=== PATIENT | female | born 1970 | race Caucasian/White ===

== ENCOUNTER 2017-04-06 14:04 | Inpatient (IN) | payer BC ==
[2017-04-06] MEDS ORDERED: NACL 0.9% 3 ML SYG IV ×2 (15:30→18:30)
[2017-04-06] MEDS: morphine 2 MG INJ IV (15:34)
[2017-04-06] MEDS ORDERED: ACETAMINOPHEN 325 MG TAB PO (18:30)
[2017-04-06] MEDS ORDERED: ONDANSETRON 4 MG INJ IV (18:30)
[2017-04-06] MEDS: ENOXAPARIN 40 MG/0.4 ML SYG SC (18:43)
[2017-04-06] MEDS: ASPIRIN 81 MG TAB PO (18:43)
[2017-04-06] MEDS: SOD CHLORIDE 0.45% 1,000 ML IV (18:45)
[2017-04-06] MEDS ORDERED: ASPIRIN 81 MG TAB PO (20:00)
[2017-04-06 20:01] LABS: CREATINE KINASE 39 IU/L (23-200)
[2017-04-06 20:03] LABS: ANION GAP 12 (8-16); BLOOD UREA NITROGEN 15 mg/dl (7-20); CALCIUM 8.3 mg/dl (8.4-10.2); CARBON DIOXIDE 19 mmol/L (21-31); CHLORIDE 112 mmol/L (97-110); CREATININE 0.82 mg/dl (0.44-1.00); GLUCOSE 153 mg/dl (70-220); POTASSIUM 3.6 mmol/L (3.5-5.1); SODIUM 139 mmol/L (135-144)
[2017-04-06 20:15] LABS: CK INDEX 4.9; CK-MB 1.92 ng/ml (0.0-2.4); TROPONIN-I < 0.012 ng/ml (0.00-0.12)
[2017-04-06] MEDS ORDERED: ENOXAPARIN 40 MG/0.4 ML SYG SC (21:00)
[2017-04-06] MEDS: FAMOTIDINE 20 MG INJ IV (21:08)
[2017-04-07 01:18] LABS: CREATINE KINASE 33 IU/L (23-200)
[2017-04-07 01:28] LABS: CK INDEX 5.4; CK-MB 1.77 ng/ml (0.0-2.4)
[2017-04-07 01:32] LABS: TROPONIN-I < 0.012 ng/ml (0.00-0.12)
[2017-04-07] MEDS: IOHEXOL 300MG/ML 150 ML BTL (04:03)
[2017-04-07] MEDS: SOD CHLORIDE 0.9% 100 ML ×2 (04:03→16:21)
[2017-04-07] MEDS: SOD CHLORIDE 0.45% 1,000 ML IV ×2 (08:41→20:47)
[2017-04-07] MEDS: ASPIRIN 81 MG TAB PO (09:21)
[2017-04-07] MEDS: FAMOTIDINE 20 MG INJ IV ×2 (09:21→20:35)
[2017-04-07 14:16] LABS: ADD MAN DIFF? NO
[2017-04-07 14:21] LABS: BASOPHIL # 0.1 10^3/ul (0.0-0.1); BASOPHILS % 0.8 % (0.0-2.0); EOSINOPHILS # 0.2 10^3/ul (0.0-0.5); EOSINOPHILS % 1.8 % (0.0-7.0); HEMATOCRIT 44.8 % (37.0-47.0); HEMOGLOBIN 14.9 g/dl (12.0-16.0); LYMPHOCYTES # 3.2 10^3/ul (0.8-2.9); MEAN CORPUSCULAR HGB CONC 33.3 g/dl (32.0-37.0); MEAN CORPUSCULAR VOLUME 90.1 fl (82.0-101.0); MEAN PLATELET VOLUME 10.4 fl (7.4-10.4); MONOCYTE # 0.6 10^3/ul (0.3-0.9); MONOCYTES % 6.4 % (0.0-11.0); NEUTROPHIL # 5.7 10^3/ul (1.6-7.5); NEUTROPHILS % 57.5 % (39.0-77.0); PLATELET COUNT 347 10^3/UL (140-415); RED BLOOD COUNT 4.97 10^6/ul (4.20-5.40); RED CELL DISTRIBUTION WIDTH 13.9 % (11.5-14.5)
[2017-04-07 14:21] LABS: WHITE BLOOD COUNT 9.8 10^3/ul (4.8-10.8)
[2017-04-07 14:30] LABS: HEMOGLOBIN A1C 6.1 % (0-5.9)
[2017-04-07 14:38] LABS: ANION GAP 11 (8-16); BLOOD UREA NITROGEN 15 mg/dl (7-20); CALCIUM 8.4 mg/dl (8.4-10.2); CARBON DIOXIDE 20 mmol/L (21-31); CHLORIDE 110 mmol/L (97-110); CREATININE 0.75 mg/dl (0.44-1.00); GLUCOSE 136 mg/dl (70-220); POTASSIUM 4.3 mmol/L (3.5-5.1); SODIUM 137 mmol/L (135-144)
[2017-04-07 14:41] LABS: CHOL/HDL RATIO 4.7 RATIO; HDL CHOLESTEROL 32 mg/dl (34-88); LDL CHOLESTEROL,CALCULATED 66 mg/dl; TRIGLYCERIDES 264 mg/dl (0-149)
[2017-04-07 14:41] LABS: CHOLESTEROL 151 mg/dl (100-200)
[2017-04-07 14:42] LABS: MAGNESIUM 1.7 mg/dl (1.7-2.5)
[2017-04-07 14:42] LABS: PHOSPHORUS 4.6 mg/dl (2.5-4.9)
[2017-04-07 14:57] LABS: FREE THYROXINE INDEX (Calc) 2.18 ug/ml (0.65-3.89); T3 UPTAKE 41.2 % (23.5-40.5); T4 (THYROXINE) 5.3 ug/dl (5.5-11.0)
[2017-04-07] MEDS: IOHEXOL 100 ML (17:20)
[2017-04-07] MEDS: IOHEXOL 350MG/ML 50 ML BTL (17:20)
[2017-04-07] MEDS: ENOXAPARIN 40 MG/0.4 ML SYG SC (18:10)
[2017-04-07] MEDS: CYCLOBENZAPRINE 10 MG TAB PO (20:35)
[2017-04-08 07:45] LABS: ADD MAN DIFF? NO
[2017-04-08 07:51] LABS: WHITE BLOOD COUNT 8.6 10^3/ul (4.8-10.8)
[2017-04-08 07:51] LABS: BASOPHIL # 0.1 10^3/ul (0.0-0.1); BASOPHILS % 0.7 % (0.0-2.0); EOSINOPHILS # 0.1 10^3/ul (0.0-0.5); EOSINOPHILS % 1.5 % (0.0-7.0); HEMATOCRIT 43.9 % (37.0-47.0); HEMOGLOBIN 14.9 g/dl (12.0-16.0); LYMPHOCYTES # 2.8 10^3/ul (0.8-2.9); LYMPHOCYTES % 32.1 % (15.0-51.0); MEAN CORPUSCULAR HGB CONC 33.9 g/dl (32.0-37.0); MEAN CORPUSCULAR VOLUME 88.5 fl (82.0-101.0); MEAN PLATELET VOLUME 10.5 fl (7.4-10.4); MONOCYTE # 0.6 10^3/ul (0.3-0.9); MONOCYTES % 7.5 % (0.0-11.0); NEUTROPHILS % 57.8 % (39.0-77.0); PLATELET COUNT 299 10^3/UL (140-415); RED BLOOD COUNT 4.96 10^6/ul (4.20-5.40); RED CELL DISTRIBUTION WIDTH 13.9 % (11.5-14.5)
[2017-04-08 08:16] LABS: ANION GAP 11 (8-16); BLOOD UREA NITROGEN 13 mg/dl (7-20); CALCIUM 8.7 mg/dl (8.4-10.2); CARBON DIOXIDE 22 mmol/L (21-31); CHLORIDE 108 mmol/L (97-110); CREATININE 0.79 mg/dl (0.44-1.00); GLUCOSE 111 mg/dl (70-220); POTASSIUM 4.2 mmol/L (3.5-5.1); SODIUM 137 mmol/L (135-144)
[2017-04-08] MEDS: ASPIRIN 81 MG TAB PO (09:15)
[2017-04-08] MEDS: CYCLOBENZAPRINE 10 MG TAB PO ×3 (09:15→20:42)
[2017-04-08] MEDS: FAMOTIDINE 20 MG INJ IV ×2 (09:16→20:42)
[2017-04-08] MEDS: SOD CHLORIDE 0.45% 1,000 ML IV (13:08)
[2017-04-08] MEDS: LISINOPRIL 5 MG TAB PO (15:06)
[2017-04-08] MEDS: ENOXAPARIN 40 MG/0.4 ML SYG SC (18:04)
[2017-04-08] MEDS: SILDENAFIL 20 MG TAB PO (20:44)
[2017-04-08] MEDS: morphine 2 MG INJ IV (20:53)
[2017-04-09] MEDS: LEVOTHYROXINE 25 MCG TAB PO (06:24)
[2017-04-09] MEDS: morphine 2 MG INJ IV (09:14)
[2017-04-09] MEDS: GEMFIBROZIL 600 MG TAB PO (09:15)
[2017-04-09] MEDS: SILDENAFIL 20 MG TAB PO ×3 (09:15→21:23)
[2017-04-09] MEDS: ASPIRIN 81 MG TAB PO (09:16)
[2017-04-09] MEDS: CYCLOBENZAPRINE 10 MG TAB PO ×3 (09:16→21:23)
[2017-04-09] MEDS: AMLODIPINE 2.5 MG TAB PO (09:16)
[2017-04-09] MEDS: LISINOPRIL 5 MG TAB PO (09:16)
[2017-04-09] MEDS: FUROSEMIDE 20 MG INJ IV (09:17)
[2017-04-09] MEDS: FAMOTIDINE 20 MG INJ IV ×2 (09:23→21:23)
[2017-04-09] MEDS: SOD CHLORIDE 0.45% 1,000 ML IV (13:17)
[2017-04-09] MEDS: ENOXAPARIN 40 MG/0.4 ML SYG SC (18:36)
[2017-04-09] MEDS: ACETAMINOPHEN 325 MG TAB PO (21:23)
[2017-04-10] MEDS: LEVOTHYROXINE 25 MCG TAB PO (06:33)
[2017-04-10] MEDS: AMLODIPINE 2.5 MG TAB PO (09:00)
[2017-04-10] MEDS: LISINOPRIL 5 MG TAB PO (09:00)
[2017-04-10] MEDS: SILDENAFIL 20 MG TAB PO ×2 (09:00→13:00)
[2017-04-10] MEDS: FUROSEMIDE 20 MG INJ IV ×2 (09:00→09:21)
[2017-04-10] MEDS: CYCLOBENZAPRINE 10 MG TAB PO ×3 (09:21→20:47)
[2017-04-10] MEDS: GEMFIBROZIL 600 MG TAB PO (09:21)
[2017-04-10] MEDS: ASPIRIN 81 MG TAB PO (09:21)
[2017-04-10] MEDS: FAMOTIDINE 20 MG INJ IV ×2 (09:21→20:47)
[2017-04-10] MEDS: ACETAMINOPHEN 325 MG TAB PO (12:21)
[2017-04-10] MEDS: SOD CHLORIDE 0.9% 500 ML IV (13:00)
[2017-04-10] MEDS: SOD CHLORIDE 0.45% 1,000 ML IV (15:00)
[2017-04-10 16:10] LABS: TROPONIN-I 0.039 ng/ml (0.00-0.12)
[2017-04-10] MEDS: SOD CHLORIDE 0.9% 250 ML IV (16:30)
[2017-04-10] MEDS: ALBUMIN HUMAN 25% 50 ML IV (16:30)
[2017-04-10] MEDS: KETOROLAC 30 MG INJ IV (17:00)
[2017-04-10] MEDS: CEFAZOLIN 1 GM/50 ML (PMX) 50 ML IVPB ×2 (17:00→22:30)
[2017-04-10] MEDS: ENOXAPARIN 40 MG/0.4 ML SYG SC (18:00)
[2017-04-11] MEDS: morphine 2 MG INJ IV ×4 (00:10→21:45)
[2017-04-11] MEDS: CEFAZOLIN 1 GM/50 ML (PMX) 50 ML IVPB ×3 (05:28→21:09)
[2017-04-11] MEDS: LEVOTHYROXINE 25 MCG TAB PO (05:29)
[2017-04-11 07:26] LABS: ADD MAN DIFF? NO
[2017-04-11 07:30] LABS: BASOPHILS % 0.3 % (0.0-2.0); EOSINOPHILS % 0.5 % (0.0-7.0); HEMATOCRIT 45.1 % (37.0-47.0); LYMPHOCYTES # 0.6 10^3/ul (0.8-2.9); LYMPHOCYTES % 8.1 % (15.0-51.0); MEAN CORPUSCULAR HEMOGLOBIN 29.8 pg (29.0-33.0); MEAN CORPUSCULAR HGB CONC 33.3 g/dl (32.0-37.0); MEAN CORPUSCULAR VOLUME 89.7 fl (82.0-101.0); MEAN PLATELET VOLUME 10.8 fl (7.4-10.4); MONOCYTE # 0.4 10^3/ul (0.3-0.9); MONOCYTES % 4.9 % (0.0-11.0); NEUTROPHIL # 6.7 10^3/ul (1.6-7.5); NEUTROPHILS % 85.7 % (39.0-77.0); PLATELET COUNT 181 10^3/UL (140-415); RED BLOOD COUNT 5.03 10^6/ul (4.20-5.40); RED CELL DISTRIBUTION WIDTH 14.2 % (11.5-14.5)
[2017-04-11 07:30] LABS: WHITE BLOOD COUNT 7.8 10^3/ul (4.8-10.8)
[2017-04-11 07:51] LABS: MAGNESIUM 1.7 mg/dl (1.7-2.5)
[2017-04-11 07:51] LABS: PHOSPHORUS 4.2 mg/dl (2.5-4.9)
[2017-04-11 07:59] LABS: ALANINE AMINOTRANSFERASE 53 IU/L (13-69); ALBUMIN 3.3 g/dl (3.3-4.9); ALKALINE PHOSPHATASE 111 IU/L (42-121); ANION GAP 14 (8-16); ASPARTATE AMINO TRANSFERASE 44 IU/L (15-46); BILIRUBIN,INDIRECT 1.4 mg/dl (0-1.1); BILIRUBIN,TOTAL 1.4 mg/dl (0.2-1.3); BLOOD UREA NITROGEN 32 mg/dl (7-20); CALCIUM 8.5 mg/dl (8.4-10.2); CARBON DIOXIDE 23 mmol/L (21-31); CHLORIDE 103 mmol/L (97-110); CREATININE 1.48 mg/dl (0.44-1.00); GLUCOSE 128 mg/dl (70-220); POTASSIUM 4.5 mmol/L (3.5-5.1); SODIUM 135 mmol/L (135-144); TOTAL PROTEIN 6.6 g/dl (6.1-8.1)
[2017-04-11] MEDS: FAMOTIDINE 20 MG INJ IV ×2 (08:27→21:09)
[2017-04-11] MEDS: GEMFIBROZIL 600 MG TAB PO (08:27)
[2017-04-11] MEDS: CYCLOBENZAPRINE 10 MG TAB PO ×3 (08:27→21:09)
[2017-04-11] MEDS: ASPIRIN 81 MG TAB PO (08:27)
[2017-04-11 10:00] LABS: HIV 1&2 ANTIBODY NEGATIVE (NEGATIVE)
[2017-04-11] MEDS: SOD CHLORIDE 0.45% 1,000 ML IV (13:17)
[2017-04-11 16:46] LABS: RHEUMATOID FACTOR NEGATIVE (NEGATIVE)
[2017-04-11] MEDS: SOD CHLORIDE 0.9% 500 ML IV (17:31)
[2017-04-11] MEDS: ENOXAPARIN 40 MG/0.4 ML SYG SC (18:06)
[2017-04-12] MEDS: LEVOTHYROXINE 25 MCG TAB PO (05:35)
[2017-04-12] MEDS: CEFAZOLIN 1 GM/50 ML (PMX) 50 ML IVPB ×2 (05:36→13:41)
[2017-04-12 08:47] LABS: ANION GAP 13 (8-16); BLOOD UREA NITROGEN 20 mg/dl (7-20); CALCIUM 8.7 mg/dl (8.4-10.2); CARBON DIOXIDE 19 mmol/L (21-31); CHLORIDE 107 mmol/L (97-110); CREATININE 0.83 mg/dl (0.44-1.00); GLUCOSE 153 mg/dl (70-220); POTASSIUM 4.2 mmol/L (3.5-5.1); SODIUM 135 mmol/L (135-144)
[2017-04-12] MEDS: CYCLOBENZAPRINE 10 MG TAB PO ×3 (08:59→21:39)
[2017-04-12] MEDS: ASPIRIN 81 MG TAB PO (08:59)
[2017-04-12] MEDS: GEMFIBROZIL 600 MG TAB PO (08:59)
[2017-04-12] MEDS: FAMOTIDINE 20 MG INJ IV ×2 (09:00→21:39)
[2017-04-12] MEDS ORDERED: DIAZEPAM 5 MG TAB PO (10:30)
[2017-04-12] MEDS ORDERED: DIPHENHYDRAMINE 50 MG CAP PO (10:30)
[2017-04-12] MEDS ORDERED: MIDAZOLAM 1 MG/ML 2 ML INJ (12:34)
[2017-04-12] MEDS ORDERED: FENTAnyl 50 MCG/ML VIAL (12:34)
[2017-04-12] MEDS ORDERED: LIDOCAINE 1% (MDV) 20 ML INJ (12:34)
[2017-04-12] MEDS ORDERED: IODIXANOL LOCM 100 ML BTL (12:34)
[2017-04-12 13:21] LABS: ANA SCREEN NEGATIVE (NEGATIVE); MYELOPEROXIDASE ANTIBODY <1.0 AI; PROTEINASE-3 ANTIBODY <1.0 AI
[2017-04-12 14:51] LABS: ANCA SCREEN NEGATIVE (NEGATIVE)
[2017-04-12 14:56] LABS: URIC ACID 4.6 mg/dl (3.1-7.9)
[2017-04-12 15:19] LABS: RHEUMATOID FACTOR NEGATIVE (NEGATIVE)
[2017-04-12] MEDS: morphine 2 MG INJ IV ×2 (18:00→21:57)
[2017-04-12] MEDS: ENOXAPARIN 40 MG/0.4 ML SYG SC (18:04)
[2017-04-13] MEDS: LEVOTHYROXINE 25 MCG TAB PO (05:34)
[2017-04-13] MEDS: morphine 2 MG INJ IV ×2 (05:34→12:22)
[2017-04-13] MEDS: ASPIRIN 81 MG TAB PO (08:35)
[2017-04-13] MEDS: GEMFIBROZIL 600 MG TAB PO (08:35)
[2017-04-13] MEDS: CYCLOBENZAPRINE 10 MG TAB PO ×3 (08:35→22:02)
[2017-04-13] MEDS: FAMOTIDINE 20 MG INJ IV ×2 (08:35→22:01)
[2017-04-13 12:01] LABS: ANA SCREEN NEGATIVE (NEGATIVE)
[2017-04-13] MEDS: ENOXAPARIN 40 MG/0.4 ML SYG SC (17:16)
[2017-04-13] MEDS ORDERED: NAPROXEN 500 MG TAB PO (19:30)
[2017-04-13] MEDS ORDERED: ACET/BUTAL/CAFF TAB PO (20:00)
[2017-04-14] MEDS: morphine 2 MG INJ IV ×4 (02:53→20:35)
[2017-04-14] MEDS: LEVOTHYROXINE 25 MCG TAB PO (06:02)
[2017-04-14 07:40] LABS: ANION GAP 17 (8-16); BLOOD UREA NITROGEN 14 mg/dl (7-20); CALCIUM 9.5 mg/dl (8.4-10.2); CARBON DIOXIDE 19 mmol/L (21-31); CHLORIDE 108 mmol/L (97-110); GLUCOSE 115 mg/dl (70-220); POTASSIUM 4.6 mmol/L (3.5-5.1); SODIUM 139 mmol/L (135-144)
[2017-04-14] MEDS: CYCLOBENZAPRINE 10 MG TAB PO ×3 (09:30→20:34)
[2017-04-14] MEDS: ASPIRIN 81 MG TAB PO (09:30)
[2017-04-14] MEDS: GEMFIBROZIL 600 MG TAB PO (09:30)
[2017-04-14] MEDS: FAMOTIDINE 20 MG INJ IV ×2 (09:30→20:34)
[2017-04-14] MEDS: ENOXAPARIN 40 MG/0.4 ML SYG SC (18:00)
[2017-04-15] MEDS: LEVOTHYROXINE 25 MCG TAB PO (05:53)
[2017-04-15] MEDS: morphine 2 MG INJ IV ×4 (05:54→20:58)
[2017-04-15 09:04] LABS: ALANINE AMINOTRANSFERASE 44 IU/L (13-69); ALBUMIN 3.5 g/dl (3.3-4.9); ALBUMIN/GLOBULIN RATIO 1.02; ALKALINE PHOSPHATASE 184 IU/L (42-121); ANION GAP 15 (8-16); ASPARTATE AMINO TRANSFERASE 30 IU/L (15-46); BILIRUBIN,INDIRECT 0.5 mg/dl (0-1.1); BILIRUBIN,TOTAL 0.5 mg/dl (0.2-1.3); BLOOD UREA NITROGEN 15 mg/dl (7-20); CALCIUM 8.8 mg/dl (8.4-10.2); CARBON DIOXIDE 23 mmol/L (21-31); CHLORIDE 110 mmol/L (97-110); CREATININE 0.75 mg/dl (0.44-1.00); GLUCOSE 134 mg/dl (70-220); POTASSIUM 4.2 mmol/L (3.5-5.1); SODIUM 144 mmol/L (135-144); TOTAL PROTEIN 6.9 g/dl (6.1-8.1)
[2017-04-15] MEDS: CYCLOBENZAPRINE 10 MG TAB PO ×3 (09:56→20:57)
[2017-04-15] MEDS: ASPIRIN 81 MG TAB PO (09:57)
[2017-04-15] MEDS: GEMFIBROZIL 600 MG TAB PO (09:57)
[2017-04-15] MEDS: FAMOTIDINE 20 MG INJ IV ×2 (09:57→20:57)
[2017-04-15] MEDS: ENOXAPARIN 40 MG/0.4 ML SYG SC (18:12)
[2017-04-16] MEDS: morphine 2 MG INJ IV ×3 (03:23→13:47)
[2017-04-16] MEDS: CYCLOBENZAPRINE 10 MG TAB PO ×3 (08:53→20:34)
[2017-04-16] MEDS: GEMFIBROZIL 600 MG TAB PO (08:53)
[2017-04-16] MEDS: FAMOTIDINE 20 MG INJ IV ×2 (08:53→20:34)
[2017-04-16] MEDS: ASPIRIN 81 MG TAB PO (08:53)
[2017-04-16] MEDS: LEVOTHYROXINE 25 MCG TAB PO (08:53)
[2017-04-16 15:26] LABS: ADD UMIC NO; UR ASCORBIC ACID NEGATIVE (NEGATIVE); UR BILIRUBIN (Dip) NEGATIVE (NEGATIVE); UR BLOOD (Dip) NEGATIVE (NEGATIVE); UR CLARITY CLEAR (CLEAR); UR COLOR COLORLESS (YELLOW); UR GLUCOSE (Dip) NEGATIVE (NEGATIVE); UR KETONES (Dip) NEGATIVE (NEGATIVE); UR LEUKOCYTE ESTERASE (Dip) NEGATIVE Leu/ul (NEGATIVE); UR NITRITE (Dip) NEGATIVE (NEGATIVE); UR TOTAL PROTEIN (Dip) NEGATIVE (NEGATIVE); UR UROBILINOGEN (Dip) NEGATIVE (NEGATIVE)
[2017-04-16 15:48] LABS: AMPHETAMINE/METHAMPHETAMINE Negative (NEGATIVE); OPIATES Negative (NEGATIVE)
[2017-04-16 15:59] LABS: BARBITURATES Negative (NEGATIVE); BENZODIAZEPINES Negative (NEGATIVE); CANNABINOIDS Negative (NEGATIVE); COCAINE Negative (NEGATIVE)
[2017-04-16] MEDS: ENOXAPARIN 40 MG/0.4 ML SYG SC (17:35)
[2017-04-17] MEDS: LEVOTHYROXINE 25 MCG TAB PO (05:38)
[2017-04-17] MEDS: morphine 2 MG INJ IV ×3 (05:38→19:45)
[2017-04-17] MEDS: ASPIRIN 81 MG TAB PO (08:39)
[2017-04-17] MEDS: GEMFIBROZIL 600 MG TAB PO (08:39)
[2017-04-17] MEDS: FAMOTIDINE 20 MG INJ IV ×2 (08:39→21:44)
[2017-04-17] MEDS: CYCLOBENZAPRINE 10 MG TAB PO ×3 (08:39→21:44)
[2017-04-17] MEDS: ENOXAPARIN 40 MG/0.4 ML SYG SC (17:18)
[2017-04-18] MEDS: morphine 2 MG INJ IV ×2 (02:49→09:20)
[2017-04-18] MEDS: LEVOTHYROXINE 25 MCG TAB PO (06:03)
[2017-04-18] MEDS: FAMOTIDINE 20 MG INJ IV ×2 (08:33→21:43)
[2017-04-18] MEDS: CYCLOBENZAPRINE 10 MG TAB PO ×3 (08:33→21:43)
[2017-04-18] MEDS: ASPIRIN 81 MG TAB PO (08:33)
[2017-04-18] MEDS: DOCUSATE SODIUM 100 MG CAP PO ×2 (08:33→21:43)
[2017-04-18] MEDS: GEMFIBROZIL 600 MG TAB PO (08:33)
[2017-04-18 15:30] LABS: AADO2 Arterial 34.5 mmHg (7.0-24.0); Arterial Base Excess -1.3 mmol/L (-3.0-3); Arterial COHb 0.5 % (0.0-3.0); Arterial Fraction of Oxyhgb 93.3 % (93.0-99.0); Arterial HCO3 22.9 mmol/L (22.0-26.0); Arterial MetHb 0.2 % (0.0-1.5); Arterial Total Hemglobin 15.9 g/dl (12.0-18.0); Arterial pCO2 36.8 mmhg (35-45); MODE ROOM AIR; Site LB
[2017-04-18] MEDS: ENOXAPARIN 40 MG/0.4 ML SYG SC (17:45)
[2017-04-19] MEDS: morphine 2 MG INJ IV ×3 (00:06→11:49)
[2017-04-19] MEDS: LEVOTHYROXINE 25 MCG TAB PO (05:30)
[2017-04-19] MEDS: ASPIRIN 81 MG TAB PO (08:49)
[2017-04-19] MEDS: CYCLOBENZAPRINE 10 MG TAB PO ×3 (08:50→21:16)
[2017-04-19] MEDS: FAMOTIDINE 20 MG INJ IV (08:50)
[2017-04-19] MEDS: GEMFIBROZIL 600 MG TAB PO (09:04)
[2017-04-19] MEDS: HYDROCODONE/APAP (5/325) TAB PO (09:04)
[2017-04-19] MEDS ORDERED: NITROGLYCERIN (SL) 0.4 MG TAB SL (12:00)
[2017-04-19 14:28] LABS: TROPONIN-I < 0.012 ng/ml (0.00-0.12)
[2017-04-19] MEDS: ENOXAPARIN 40 MG/0.4 ML SYG SC (19:03)
[2017-04-19] MEDS: FAMOTIDINE 20 MG TAB PO (21:17)
[2017-04-20] MEDS: LEVOTHYROXINE 25 MCG TAB PO (06:14)
[2017-04-20] MEDS: CYCLOBENZAPRINE 10 MG TAB PO ×3 (09:23→20:56)
[2017-04-20] MEDS: ASPIRIN 81 MG TAB PO (09:23)
[2017-04-20] MEDS: GEMFIBROZIL 600 MG TAB PO (09:23)
[2017-04-20] MEDS: morphine 2 MG INJ IV ×3 (09:24→21:23)
[2017-04-20] MEDS: FAMOTIDINE 20 MG TAB PO ×2 (09:24→20:56)
[2017-04-20] MEDS: ENOXAPARIN 40 MG/0.4 ML SYG SC (17:29)
[2017-04-20] MEDS: ZOLPIDEM 5 MG TAB PO (20:58)
[2017-04-21] MEDS: morphine 2 MG INJ IV ×4 (04:23→17:55)
[2017-04-21] MEDS: LEVOTHYROXINE 25 MCG TAB PO (06:33)
[2017-04-21 07:49] LABS: ADD MAN DIFF? NO
[2017-04-21 07:57] LABS: BASOPHIL # 0.2 10^3/ul (0.0-0.1); BASOPHILS % 1.3 % (0.0-2.0); EOSINOPHILS # 0.2 10^3/ul (0.0-0.5); EOSINOPHILS % 1.7 % (0.0-7.0); HEMATOCRIT 53.5 % (37.0-47.0); HEMOGLOBIN 17.6 g/dl (12.0-16.0); LYMPHOCYTES # 3.4 10^3/ul (0.8-2.9); LYMPHOCYTES % 27.1 % (15.0-51.0); MEAN CORPUSCULAR HEMOGLOBIN 29.3 pg (29.0-33.0); MEAN CORPUSCULAR HGB CONC 32.9 g/dl (32.0-37.0); MEAN CORPUSCULAR VOLUME 89.2 fl (82.0-101.0); MEAN PLATELET VOLUME 10.3 fl (7.4-10.4); MONOCYTE # 0.8 10^3/ul (0.3-0.9); MONOCYTES % 6.4 % (0.0-11.0); NEUTROPHIL # 7.8 10^3/ul (1.6-7.5); NEUTROPHILS % 61.7 % (39.0-77.0); PLATELET COUNT 528 10^3/UL (140-415); RED CELL DISTRIBUTION WIDTH 13.2 % (11.5-14.5)
[2017-04-21 07:57] LABS: WHITE BLOOD COUNT 12.7 10^3/ul (4.8-10.8)
[2017-04-21 08:11] LABS: ANION GAP 19 (8-16); BLOOD UREA NITROGEN 17 mg/dl (7-20); CALCIUM 9.8 mg/dl (8.4-10.2); CARBON DIOXIDE 24 mmol/L (21-31); CHLORIDE 106 mmol/L (97-110); CREATININE 0.77 mg/dl (0.44-1.00); GLUCOSE 124 mg/dl (70-220); POTASSIUM 4.5 mmol/L (3.5-5.1); SODIUM 144 mmol/L (135-144)
[2017-04-21 08:34] LABS: MAGNESIUM 1.9 mg/dl (1.7-2.5)
[2017-04-21 08:34] LABS: PHOSPHORUS 4.1 mg/dl (2.5-4.9)
[2017-04-21] MEDS: GEMFIBROZIL 600 MG TAB PO (08:45)
[2017-04-21] MEDS: ASPIRIN 81 MG TAB PO (08:45)
[2017-04-21] MEDS: CYCLOBENZAPRINE 10 MG TAB PO ×3 (08:45→21:16)
[2017-04-21] MEDS: FAMOTIDINE 20 MG TAB PO ×2 (08:45→21:16)
[2017-04-21] MEDS: LORAZEPAM 0.5 MG TAB PO (08:51)
[2017-04-21] MEDS: CEFTRIAXONE 1 GM/50 ML (PMX) 50 ML IVPB (12:16)
[2017-04-21] MEDS: ENOXAPARIN 40 MG/0.4 ML SYG SC (17:50)
[2017-04-21] MEDS: ZOLPIDEM 5 MG TAB PO (21:20)
[2017-04-22] MEDS: LEVOTHYROXINE 25 MCG TAB PO (05:22)
[2017-04-22] MEDS: morphine 2 MG INJ IV ×3 (05:22→15:04)
[2017-04-22 06:29] LABS: WHITE BLOOD COUNT 12.4 10^3/ul (4.8-10.8)
[2017-04-22 06:29] LABS: ABNORMAL IP MESSAGE 1; HEMOGLOBIN 16.9 g/dl (12.0-16.0); MEAN CORPUSCULAR HEMOGLOBIN 29.4 pg (29.0-33.0); MEAN CORPUSCULAR HGB CONC 33.1 g/dl (32.0-37.0); MEAN CORPUSCULAR VOLUME 88.7 fl (82.0-101.0); MEAN PLATELET VOLUME 9.7 fl (7.4-10.4); PLATELET COUNT 556 10^3/UL (140-415); RED BLOOD COUNT 5.75 10^6/ul (4.20-5.40); RED CELL DISTRIBUTION WIDTH 13.6 % (11.5-14.5)
[2017-04-22 06:32] LABS: ADD MAN DIFF? YES; POSITIVE DIFF @See below
[2017-04-22] MEDS: GEMFIBROZIL 600 MG TAB PO (08:41)
[2017-04-22] MEDS: ASPIRIN 325 MG TAB PO (08:41)
[2017-04-22] MEDS: CYCLOBENZAPRINE 10 MG TAB PO ×2 (08:41→13:16)
[2017-04-22] MEDS: LORAZEPAM 0.5 MG TAB PO (08:41)
[2017-04-22] MEDS: FAMOTIDINE 20 MG TAB PO (08:41)
[2017-04-22 09:18] LABS: ANISOCYTOSIS 3+ (0-0); BAND NEUTROPHILS #M 0.1 10^3/ul (0.0-0.6); BAND NEUTROPHILS % (M) 1 % (0-4); EOSINOPHILS % (M) 3 % (0-7); LYMPHOCYTES #M 3.8 10^3/ul (0.8-2.9); LYMPHOCYTES % (M) 31 % (15-51); MICROCYTOSIS 3+ (0-0); MONOCYTE #M 1.3 10^3/ul (0.3-0.9); MONOCYTES % (M) 11 % (0-11); PLATELET ESTIMATE INCREASED; POLYCHROMASIA 2+ (0-0); SEG NEUT #M 6.7 10^3/ul (1.6-7.5); SEGMENTED NEUTROPHILS (M) % 54 % (39-77); SMUDGE%M 9 % (0-0)
[2017-04-22] MEDS: CEFTRIAXONE 1 GM/50 ML (PMX) 50 ML IVPB (10:04)
[2017-04-22] MEDS ORDERED: ALBUTEROL HFA 8 GM INHALER INH (13:00)
== END 2017-04-22 16:48 | disposition short-term general hospital (02) ==
LOC: MS4 14:04
PROC: 4A033R1 Measurement of Arterial Saturation, Peripheral, Percutaneous Approach (ICD-10-PCS; principal; 2017-04-18)
DX: I27.0 Primary pulmonary hypertension (principal); I50.23 Acute on chronic systolic (congestive) heart failure; N17.9 Acute kidney failure, unspecified; I95.89 Other hypotension; I48.0 Paroxysmal atrial fibrillation; J44.9 Chronic obstructive pulmonary disease, unspecified; G43.909 Migraine, unspecified, not intractable, without status migrainosus; I11.0 Hypertensive heart disease with heart failure; I50.810 Right heart failure, unspecified; I49.9 Cardiac arrhythmia, unspecified; D72.829 Elevated white blood cell count, unspecified; E03.9 Hypothyroidism, unspecified; E78.1 Pure hyperglyceridemia; F17.210 Nicotine dependence, cigarettes, uncomplicated; R94.31 Abnormal electrocardiogram [ECG] [EKG]; R42 Dizziness and giddiness; R45.1 Restlessness and agitation; R60.0 Localized edema; R63.4 Abnormal weight loss; Z68.23 Body mass index [BMI] 23.0-23.9, adult; Z85.820 Personal history of malignant melanoma of skin; Z53.09 Procedure and treatment not carried out because of other contraindication
CPT/HCPCS: 36600; 70450; 71045; 71275; 78582; 80048; 80053; 80061; 80307; 81003; 82550; 82553; 82803; 83036; 83735; 84100; 84436; 84443; 84479; 84484; 84560; 85025; 86021; 86038; 86430; 86703; 87040; 87400; 93005; 93306; 93970; J1940